=== PATIENT | male | born 1970 | race African-American/Black ===

== ENCOUNTER 2022-12-12 17:33 | Inpatient (IN) | payer OTHER ==
[2022-12-12 20:38] VITALS: BMI 22.4
[2022-12-12] MEDS ORDERED: BENZONATATE 200 MG CAPSULE PO PRN (21:07)
[2022-12-12] MEDS ORDERED: MAGNESIUM HYDROX 2400MG/30ML ORAL SUSPENSION 30 ML CUP PO PRN (21:07)
[2022-12-12] MEDS ORDERED: MAG HYDROX/AL HYDROX/SIMETH 30 ML UNIT-DOSE CUP PO PRN (21:07)
[2022-12-12] MEDS ORDERED: BENZOCAINE/MENTHOL (CHLORASEPTIC ) LOZENGE MM PRN (21:07)
[2022-12-12] MEDS ORDERED: ONDANSETRON *ODT* 4 MG TABLET SL PRN (21:07)
[2022-12-12] MEDS ORDERED: NALOXONE HCL (KLOXXADO) 8 MG SPRAY NS PRN (21:07)
[2022-12-12] MEDS ORDERED: BISMUTH SUBSALICYLATE 524 MG/30 ML PO PRN (21:07)
[2022-12-12] MEDS ORDERED: DICYCLOMINE HCL 10 MG CAPSULE PO PRN (21:07)
[2022-12-12] MEDS ORDERED: IBUPROFEN 400 MG TABLET (FP) PO PRN (21:07)
[2022-12-12] MEDS ORDERED: IBUPROFEN 600 MG TABLET (FP) PO PRN (21:07)
[2022-12-12] MEDS ORDERED: ACETAMINOPHEN 325 MG TABLET (FP) PO PRN (21:07)
[2022-12-12] MEDS ORDERED: LOPERAMIDE HCL 2 MG CAPSULE PO PRN (21:07)
[2022-12-12] MEDS ORDERED: POLYETHYLENE GLYCOL (HEALTHYLAX) 3350 17 GM PACKET PO PRN (21:07)
[2022-12-12] MEDS ORDERED: NALOXONE HCL 0.4 MG/ML VIAL IM PRN (21:07)
[2022-12-12] MEDS ORDERED: guaiFENesin 600 MG TABLET.ER (FP) PO PRN (21:07)
[2022-12-12] MEDS ORDERED: NICOTINE POLACRILEX 2 MG GUM BUC PRN (21:07)
[2022-12-13] MEDS ORDERED: ALBUTEROL SO4 HFA INHALER IH PRN (08:26)
[2022-12-13] MEDS ORDERED: methaDONE HCL 10 MG TABLET PO ONE (09:31)
[2022-12-13] MEDS ORDERED: diazePAM 5 MG TABLET PO PRN (09:54)
[2022-12-13] MEDS ORDERED: NICOTINE 10 MG CARTRIDGE (INHALER) IH PRN (10:09)
[2022-12-13] MEDS: PRENATAL VITAMINS W/ FOLIC ACID TABLET (FP) PO SCH (10:23)
[2022-12-13] MEDS: diazePAM 5 MG TABLET PO SCH ×3 (10:24→22:16)
[2022-12-13] MEDS: METHOCARBAMOL 500 MG TABLET PO PRN (10:25)
[2022-12-13] MEDS: hydrOXYzine PAMOATE 25 MG CAPSULE (FP) PO PRN (10:25)
[2022-12-13] MEDS: NICOTINE 21 MG/24 HOURS TOPICAL PATCH TD SCH (10:26)
[2022-12-13 11:36] LABS: HEMATOCRIT 34.2 % (35.4-49); HEMOGLOBIN 11.5 GM/dL (11.7-16.9); MCH 29.4 pg (25.7-33.7); MCHC 33.5 g/dl (32.0-35.9); MEAN CELL VOLUME 87.7 fl (80-96); MEAN PLT VOLUME 8.4 fl (7.5-11.1); PLATELET COUNT 244 10^3/uL (134-434); RDW 14.1 % (11.9-15.9); WHITE BLOOD COUNT 9.9 K/mm3 (4.0-10.0)
[2022-12-13 13:28] LABS: POTASSIUM 4.2 mmol/L (3.5-5.1)
[2022-12-13 13:35] LABS: CALCIUM 9.1 mg/dL (8.5-10.1)
[2022-12-13 13:36] LABS: ALBUMIN 3.1 g/dl (3.4-5.0); BLOOD UREA NITROGEN 11.6 mg/dL (7-18)
[2022-12-13 13:39] LABS: CREATININE 0.7 mg/dL (0.55-1.3)
[2022-12-13 13:41] LABS: BILIRUBIN,TOTAL 0.2 mg/dL (0.2-1); TOT PROT 6.7 g/dl (6.4-8.2)
[2022-12-13 14:10] LABS: HIV INTERPRETATION NEGATIVE (NEGATIVE)
[2022-12-13] MEDS: MELATONIN 5 MG TABLETS PO SCH (22:16)
[2022-12-13] MEDS: THIAMINE HCL 100 MG TABLET (FP) PO SCH (22:16)
[2022-12-13] MEDS: ATORVASTATIN CA 10 MG TABLET (FP) PO SCH (22:16)
[2022-12-14] MEDS ORDERED: methaDONE HCL 10 MG TABLET PO SCH (06:00)
[2022-12-14] MEDS: diazePAM 5 MG TABLET PO SCH ×4 (06:11→22:31)
[2022-12-14] MEDS: NICOTINE 21 MG/24 HOURS TOPICAL PATCH TD SCH (10:49)
[2022-12-14] MEDS: PRENATAL VITAMINS W/ FOLIC ACID TABLET (FP) PO SCH (10:49)
[2022-12-14] MEDS: METHOCARBAMOL 500 MG TABLET PO PRN (10:52)
[2022-12-14] MEDS: hydrOXYzine PAMOATE 25 MG CAPSULE (FP) PO PRN (10:52)
[2022-12-14] MEDS: DOCUSATE SODIUM 100 MG CAPSULE (FP) PO SCH ×2 (13:27→22:31)
[2022-12-14] MEDS: THIAMINE HCL 100 MG TABLET (FP) PO SCH (22:31)
[2022-12-14] MEDS: ATORVASTATIN CA 10 MG TABLET (FP) PO SCH (22:31)
[2022-12-14] MEDS: MELATONIN 5 MG TABLETS PO SCH (22:32)
[2022-12-15] MEDS: diazePAM 5 MG TABLET PO SCH ×3 (05:33→22:41)
[2022-12-15] MEDS: DOCUSATE SODIUM 100 MG CAPSULE (FP) PO SCH ×3 (05:34→22:41)
[2022-12-15] MEDS ORDERED: SODIUM PHOSPHATE/NA BIPHOS 133 ML ENEMA RC ONE (09:00)
[2022-12-15] MEDS: NICOTINE 21 MG/24 HOURS TOPICAL PATCH TD SCH (10:35)
[2022-12-15] MEDS: PRENATAL VITAMINS W/ FOLIC ACID TABLET (FP) PO SCH (10:37)
[2022-12-15] MEDS: hydrOXYzine PAMOATE 25 MG CAPSULE (FP) PO PRN (10:37)
[2022-12-15] MEDS: METHOCARBAMOL 500 MG TABLET PO PRN (10:37)
[2022-12-15] MEDS ORDERED: LACTULOSE 20 GM/30 ML UDC (FOR ORAL USE ONLY) PO ONE (12:22)
[2022-12-15] MEDS ORDERED: LACTULOSE 20 GM/30 ML UDC (FOR ORAL USE ONLY) PO PRN (12:24)
[2022-12-15] MEDS: ATORVASTATIN CA 10 MG TABLET (FP) PO SCH (22:41)
[2022-12-15] MEDS: THIAMINE HCL 100 MG TABLET (FP) PO SCH (22:41)
[2022-12-15] MEDS: MELATONIN 5 MG TABLETS PO SCH (22:42)
[2022-12-16] MEDS: DOCUSATE SODIUM 100 MG CAPSULE (FP) PO SCH ×3 (05:38→22:14)
[2022-12-16] MEDS: diazePAM 5 MG TABLET PO SCH ×2 (05:39→17:28)
[2022-12-16] MEDS: NICOTINE 21 MG/24 HOURS TOPICAL PATCH TD SCH (10:36)
[2022-12-16] MEDS: PRENATAL VITAMINS W/ FOLIC ACID TABLET (FP) PO SCH (10:36)
[2022-12-16] MEDS: hydrOXYzine PAMOATE 25 MG CAPSULE (FP) PO PRN ×2 (10:37→22:14)
[2022-12-16] MEDS: METHOCARBAMOL 500 MG TABLET PO PRN ×2 (10:37→22:14)
[2022-12-16] MEDS: THIAMINE HCL 100 MG TABLET (FP) PO SCH (22:14)
[2022-12-16] MEDS: ATORVASTATIN CA 10 MG TABLET (FP) PO SCH (22:14)
[2022-12-16] MEDS: MELATONIN 5 MG TABLETS PO SCH (22:14)
[2022-12-17] MEDS: DOCUSATE SODIUM 100 MG CAPSULE (FP) PO SCH (05:52)
[2022-12-17] MEDS ORDERED: diazePAM 5 MG TABLET PO ONE (06:00)
[2022-12-17 09:35] VITALS: BP 137/76; PULSE 79; RESP 18; TEMP 98.1
[2022-12-17] MEDS: PRENATAL VITAMINS W/ FOLIC ACID TABLET (FP) PO SCH ×2 (10:32→10:34)
[2022-12-17] MEDS: NICOTINE 21 MG/24 HOURS TOPICAL PATCH TD SCH (10:32)
== END 2022-12-17 11:25 | disposition home or self-care (01) | DRG 773 ==
LOC: YASAS 17:33 → Y6N 23:44
PROVIDERS: ADMIT Allergy & Immunology; ATTEND Surgery
PROC: HZ2ZZZZ Detoxification Services for Substance Abuse Treatment (ICD-10-PCS; principal; 2022-12-12)
DX: F10.230 Alcohol dependence with withdrawal, uncomplicated (principal); F13.230 Sedative, hypnotic or anxiolytic dependence with withdrawal, uncomplicated; F11.20 Opioid dependence, uncomplicated; F14.20 Cocaine dependence, uncomplicated; F17.213 Nicotine dependence, cigarettes, with withdrawal; F19.24 Other psychoactive substance dependence with psychoactive substance-induced mood disorder; F33.0 Major depressive disorder, recurrent, mild; G40.909 Epilepsy, unspecified, not intractable, without status epilepticus; E78.00 Pure hypercholesterolemia, unspecified; J45.20 Mild intermittent asthma, uncomplicated; H54.62 Unqualified visual loss, left eye, normal vision right eye; K59.00 Constipation, unspecified; R63.4 Abnormal weight loss; Z68.22 Body mass index [BMI] 22.0-22.9, adult; Z86.11 Personal history of tuberculosis; Z88.0 Allergy status to penicillin; Z28.310 Unvaccinated for COVID-19; Z28.9 Immunization not carried out for unspecified reason
CPT/HCPCS: 36415; 71046-TC-FY; 80053; 85027; 86780; 87389; 87635; 93005; 93010

== ENCOUNTER 2024-04-01 09:06 | Inpatient (IN) | payer OTHER ==
[2024-04-01 09:54] VITALS: BMI 20.8
[2024-04-01] MEDS ORDERED: ACETAMINOPHEN 325 MG TABLET (FP) PO PRN (10:53)
[2024-04-01] MEDS ORDERED: NALOXONE HCL 0.4 MG/ML VIAL IM PRN (10:53)
[2024-04-01] MEDS ORDERED: BENZOCAINE/MENTHOL (CHLORASEPTIC ) LOZENGE MM PRN (10:53)
[2024-04-01] MEDS ORDERED: NICOTINE POLACRILEX 2 MG GUM BUC PRN (10:53)
[2024-04-01] MEDS ORDERED: BENZONATATE 200 MG CAPSULE PO PRN (10:53)
[2024-04-01] MEDS ORDERED: MAGNESIUM HYDROX 2400MG/30ML ORAL SUSPENSION 30 ML CUP PO PRN (10:53)
[2024-04-01] MEDS ORDERED: IBUPROFEN 400 MG TABLET (FP) PO PRN (10:53)
[2024-04-01] MEDS ORDERED: POLYETHYLENE GLYCOL (HEALTHYLAX) 3350 17 GM PACKET PO PRN (10:53)
[2024-04-01] MEDS ORDERED: hydrOXYzine PAMOATE 25 MG CAPSULE (FP) PO PRN (10:53)
[2024-04-01] MEDS ORDERED: LOPERAMIDE HCL 2 MG CAPSULE PO PRN (10:53)
[2024-04-01] MEDS ORDERED: NALOXONE (NARCAN) HCL 4 MG/0.1 ML SPRAY NS PRN (10:53)
[2024-04-01] MEDS ORDERED: guaiFENesin 600 MG TABLET.ER (FP) PO PRN (10:53)
[2024-04-01] MEDS ORDERED: IBUPROFEN 600 MG TABLET (FP) PO PRN (10:53)
[2024-04-01] MEDS ORDERED: MAG HYDROX/AL HYDROX/SIMETH 30 ML UNIT-DOSE CUP PO PRN (10:53)
[2024-04-01] MEDS ORDERED: methaDONE HCL 10 MG TABLET PO ONE (17:29)
[2024-04-01] MEDS: methaDONE 40 MG, methaDONE 20 MG PO ONE (17:40)
[2024-04-01] MEDS: MELATONIN 5 MG TABLETS PO SCH (22:23)
[2024-04-01] MEDS: THIAMINE 100 MG TABLET PO SCH (22:23)
[2024-04-02] MEDS ORDERED: methaDONE HCL 40 MG DISPERSABLE TABLET PO SCH (06:00)
[2024-04-02] MEDS: PRENATAL VITAMINS W/ FOLIC ACID TABLET (FP) PO SCH (09:09)
[2024-04-02] MEDS: NICOTINE 14 MG/24 HOURS TOPICAL PATCH TD SCH (09:10)
[2024-04-02] MEDS: SERTRALINE HCL 25 MG TABLET (FP) PO SCH (13:30)
[2024-04-02 14:40] LABS: CHLORIDE 109 mmol/L (98-107); POTASSIUM 4.3 mmol/L (3.5-5.1); SODIUM 143 mmol/L (136-145)
[2024-04-02 14:46] LABS: ALBUMIN 3.3 g/dl (3.4-5.0); CALCIUM 9.2 mg/dL (8.5-10.1)
[2024-04-02 14:47] LABS: ANION GAP 7 mmol/L (4-13); BLOOD UREA NITROGEN 12.6 mg/dL (7-18); CO2 27 mmol/L (21-32); GLUCOSE,RANDOM 68 mg/dL (74-106)
[2024-04-02 14:48] LABS: HEMATOCRIT 38.1 % (35.4-49); HEMOGLOBIN 12.3 GM/dL (11.7-16.9); MCH 29.4 pg (25.7-33.7); MCHC 32.2 g/dl (32.0-35.9); MEAN CELL VOLUME 91.3 fl (80-96); MEAN PLT VOLUME 9.4 fl (7.5-11.1); PLATELET COUNT 254 10^3/uL (134-434); RBC 4.18 M/mm3 (4.00-5.60); RDW 14.8 % (11.9-15.9); WHITE BLOOD COUNT 5.2 K/mm3 (4.0-10.0)
[2024-04-02 14:50] LABS: CREATININE 0.9 mg/dL (0.55-1.3); SGOT/AST 21 U/L (15-37); SGPT/ALT 20 U/L (13-61)
[2024-04-02 14:51] LABS: BILIRUBIN,TOTAL 0.2 mg/dL (0.2-1); TOT PROT 6.7 g/dl (6.4-8.2)
[2024-04-02 14:52] LABS: ALK PHOS 104 U/L (45-117)
[2024-04-02 15:40] LABS: HIV INTERPRETATION NEGATIVE (NEGATIVE)
[2024-04-02] MEDS: SUVOREXANT 10 MG TABLET PO PRN (21:19)
[2024-04-02 22:11] LABS: URINE APPEARANCE CLEAR; URINE BILIRUBIN NEGATIVE (NEGATIVE); URINE COLOR YELLOW; URINE GLUCOSE (UA) NEGATIVE (NEGATIVE); URINE KETONE NEGATIVE (NEGATIVE); URINE LEUK ESTERASE NEGATIVE (NEGATIVE); URINE NITRITE NEGATIVE (NEGATIVE); URINE PROTEIN NEGATIVE (NEGATIVE); URINE UROBILINOGEN 0.2 mg/dL (0.2-1.0)
[2024-04-03] MEDS ORDERED: ALBUTEROL SO4 HFA INHALER IH PRN (12:17)
[2024-04-03] MEDS ORDERED: DOCUSATE SODIUM 100 MG CAPSULE (FP) PO PRN (12:19)
[2024-04-03] MEDS ORDERED: LIDOCAINE 4% PATCH TP ONE (12:20)
[2024-04-03] MEDS: LIDOCAINE 5% TOPICAL PATCH TP SCH (13:23)
[2024-04-03] MEDS: GABAPENTIN 100 MG CAPSULE PO SCH (13:26)
[2024-04-03] MEDS: LIDOCAINE PATCH REMOVAL MC SCH (21:35)
[2024-04-03] MEDS: ATORVASTATIN CA 10 MG TABLET (FP) PO SCH (21:35)
[2024-04-03] MEDS ORDERED: LIDOCAINE PATCH REMOVAL MC SCH (22:00)
[2024-04-04] MEDS: BACLOFEN 10 MG TABLET (FP) PO SCH (10:07)
[2024-04-04 13:46] LABS: INR 0.91 (0.83-1.09); PROTHROMBIN TIME (PATIENT) 10.5 SEC (9.7-13.0)
[2024-04-04] MEDS: LACTULOSE 20 GM/30 ML UDC (FOR ORAL USE ONLY) PO PRN (14:10)
[2024-04-04 14:48] LABS: HIV INTERPRETATION NEGATIVE (NEGATIVE)
[2024-04-04] MEDS: SUVOREXANT 10 MG TABLET PO PRN (21:25)
[2024-04-05 06:11] VITALS: RESP 18
[2024-04-06 06:17] VITALS: TEMP 97.7
[2024-04-07 10:01] VITALS: BP 158/100; PULSE 69
== END 2024-04-07 09:11 | disposition home or self-care (01) | DRG 772 ==
LOC: YASAS 09:06 → Y3NR 11:56 → Y3W 04-02 09:36
PROVIDERS: ADMIT Psychiatry & Neurology Pain Medicine; ATTEND Psychiatry & Neurology Pain Medicine
PROC: HZ42ZZZ Group Counseling for Substance Abuse Treatment, Cognitive-Behavioral (ICD-10-PCS; principal; 2024-04-01)
DX: F11.20 Opioid dependence, uncomplicated (principal); F10.20 Alcohol dependence, uncomplicated; F14.20 Cocaine dependence, uncomplicated; F17.210 Nicotine dependence, cigarettes, uncomplicated; F19.280 Other psychoactive substance dependence with psychoactive substance-induced anxiety disorder; F19.282 Other psychoactive substance dependence with psychoactive substance-induced sleep disorder; F41.9 Anxiety disorder, unspecified; F32.A Depression, unspecified; F43.10 Post-traumatic stress disorder, unspecified; E78.5 Hyperlipidemia, unspecified; H54.62 Unqualified visual loss, left eye, normal vision right eye; I10 Essential (primary) hypertension; R76.11 Nonspecific reaction to tuberculin skin test without active tuberculosis; R60.0 Localized edema
CPT/HCPCS: 36415; 71046-TC-FY; 80053; 80305; 80307; 81003; 82140; 82652; 83735; 85027; 85610; 86780; 86803; 87389; 87811; 93005; 93010; J0475

== ENCOUNTER 2024-04-30 13:10 | Inpatient (IN) | payer OTHER ==
[2024-04-30 14:05] VITALS: BMI 21.8
[2024-04-30] MEDS ORDERED: IBUPROFEN 600 MG TABLET (FP) PO PRN (14:55)
[2024-04-30] MEDS ORDERED: MAG HYDROX/AL HYDROX/SIMETH 30 ML UNIT-DOSE CUP PO PRN (14:55)
[2024-04-30] MEDS ORDERED: guaiFENesin 600 MG TABLET.ER (FP) PO PRN (14:55)
[2024-04-30] MEDS ORDERED: POLYETHYLENE GLYCOL (HEALTHYLAX) 3350 17 GM PACKET PO PRN (14:55)
[2024-04-30] MEDS ORDERED: NICOTINE POLACRILEX 4 MG GUM BUC PRN (14:55)
[2024-04-30] MEDS ORDERED: BENZOCAINE/MENTHOL (CHLORASEPTIC ) LOZENGE MM PRN (14:55)
[2024-04-30] MEDS ORDERED: IBUPROFEN 400 MG TABLET (FP) PO PRN (14:55)
[2024-04-30] MEDS ORDERED: hydrOXYzine PAMOATE 25 MG CAPSULE (FP) PO PRN (14:55)
[2024-04-30] MEDS ORDERED: MAGNESIUM HYDROX 2400MG/30ML ORAL SUSPENSION 30 ML CUP PO PRN (14:55)
[2024-04-30] MEDS ORDERED: BENZONATATE 200 MG CAPSULE PO PRN (14:55)
[2024-04-30] MEDS ORDERED: ACETAMINOPHEN 325 MG TABLET (FP) PO PRN (14:55)
[2024-04-30] MEDS ORDERED: DICYCLOMINE HCL 10 MG CAPSULE PO PRN (14:55)
[2024-04-30] MEDS ORDERED: NALOXONE (NARCAN) HCL 4 MG/0.1 ML SPRAY NS PRN (14:55)
[2024-04-30] MEDS ORDERED: METHOCARBAMOL 500 MG TABLET PO PRN (14:55)
[2024-04-30] MEDS ORDERED: LACTULOSE 20 GM/30 ML UDC (FOR ORAL USE ONLY) PO PRN (14:58)
[2024-04-30] MEDS ORDERED: PRENATAL VITAMINS W/ FOLIC ACID TABLET (FP) PO ONE (15:40)
[2024-04-30] MEDS: PRENATAL VITAMINS W/ FOLIC ACID TABLET (FP) PO SCH (15:42)
[2024-04-30] MEDS: BISMUTH SUBSALICYLATE 524 MG/30 ML PO PRN (17:42)
[2024-04-30] MEDS: ATORVASTATIN CA 10 MG TABLET (FP) PO SCH (21:55)
[2024-04-30] MEDS: THIAMINE 100 MG TABLET PO SCH (21:55)
[2024-04-30] MEDS: LOPERAMIDE HCL 2 MG CAPSULE PO PRN (21:59)
[2024-04-30] MEDS: LIDOCAINE PATCH REMOVAL MC SCH (22:00)
[2024-04-30] MEDS: MELATONIN 5 MG TABLETS PO SCH (22:00)
[2024-05-01] MEDS: ONDANSETRON *ODT* 4 MG TABLET SL PRN (05:41)
[2024-05-01] MEDS ORDERED: methaDONE HCL 10 MG TABLET PO ONE (08:38)
[2024-05-01] MEDS ORDERED: diazePAM 5 MG TABLET PO PRN (08:38)
[2024-05-01] MEDS: BACLOFEN 10 MG TABLET (FP) PO SCH (09:36)
[2024-05-01] MEDS: LIDOCAINE 5% TOPICAL PATCH TP SCH (09:36)
[2024-05-01] MEDS ORDERED: SERTRALINE HCL 50 MG TABLET (FP) PO SCH (10:00)
[2024-05-01] MEDS: SERTRALINE HCL 25 MG TABLET (FP) PO SCH (10:41)
[2024-05-01] MEDS: diazePAM 5 MG TABLET PO SCH (10:41)
[2024-05-01] MEDS ORDERED: ALBUTEROL SO4 HFA INHALER IH PRN (11:25)
[2024-05-01 15:22] LABS: HEMATOCRIT 40.3 % (35.4-49); HEMOGLOBIN 13.2 GM/dL (11.7-16.9); MCH 29.4 pg (25.7-33.7); MCHC 32.7 g/dl (32.0-35.9); MEAN PLT VOLUME 8.9 fl (7.5-11.1); PLATELET COUNT 299 10^3/uL (134-434); RBC 4.48 M/mm3 (4.00-5.60); RDW 15.2 % (11.9-15.9); WHITE BLOOD COUNT 8.1 K/mm3 (4.0-10.0)
[2024-05-01 15:25] LABS: CHLORIDE 106 mmol/L (98-107); POTASSIUM 5.3 mmol/L (3.5-5.1); SODIUM 140 mmol/L (136-145)
[2024-05-01 15:26] LABS: CALCIUM 9.4 mg/dL (8.5-10.1)
[2024-05-01 15:27] LABS: ALBUMIN 3.7 g/dl (3.4-5.0); ANION GAP 4 mmol/L (4-13); BLOOD UREA NITROGEN 26.3 mg/dL (7-18); CO2 30 mmol/L (21-32); GLUCOSE,RANDOM 68 mg/dL (74-106)
[2024-05-01 15:30] LABS: CREATININE 1.1 mg/dL (0.55-1.3); SGOT/AST 27 U/L (15-37); SGPT/ALT 43 U/L (13-61)
[2024-05-01 15:32] LABS: BILIRUBIN,TOTAL 0.2 mg/dL (0.2-1); TOT PROT 7.3 g/dl (6.4-8.2)
[2024-05-01 15:33] LABS: ALK PHOS 150 U/L (45-117)
[2024-05-01] MEDS ORDERED: SODIUM POLYSTYRENE SULFONATE 15 GM/60 ML BOTTLE PO ONE (19:15)
[2024-05-01] MEDS: SODIUM POLYSTYRENE SULFONATE 15 GM/60 ML BOTTLE PO ONE (21:09)
[2024-05-01] MEDS: traZODone HCL 100 MG TABLET (FP) PO SCH (22:29)
[2024-05-02] MEDS ORDERED: methaDONE HCL 10 MG TABLET PO SCH (06:00)
[2024-05-03] MEDS: diazePAM 5 MG TABLET PO SCH (05:39)
[2024-05-04] MEDS: diazePAM 5 MG TABLET PO SCH (05:42)
[2024-05-04] MEDS: SUVOREXANT 10 MG TABLET PO PRN (21:43)
[2024-05-05] MEDS: diazePAM 5 MG TABLET PO ONE (05:42)
[2024-05-05 08:47] VITALS: BP 112/68; PULSE 82; RESP 18; TEMP 98.7
[2024-05-05] MEDS: NALOXONE (NYS OPIOID OVERDOSE PROGRAM) 4 MG/0.1 ML SPRAY NS PRN (10:56)
== END 2024-05-05 10:42 | disposition home or self-care (01) | DRG 773 ==
LOC: YASAS 13:10 → Y6N 15:34
PROVIDERS: ADMIT Allergy & Immunology; ATTEND Surgery
PROC: HZ2ZZZZ Detoxification Services for Substance Abuse Treatment (ICD-10-PCS; principal; 2024-04-30)
DX: F10.230 Alcohol dependence with withdrawal, uncomplicated (principal); F13.230 Sedative, hypnotic or anxiolytic dependence with withdrawal, uncomplicated; F11.20 Opioid dependence, uncomplicated; F14.20 Cocaine dependence, uncomplicated; F19.282 Other psychoactive substance dependence with psychoactive substance-induced sleep disorder; F19.280 Other psychoactive substance dependence with psychoactive substance-induced anxiety disorder; F19.24 Other psychoactive substance dependence with psychoactive substance-induced mood disorder; F41.9 Anxiety disorder, unspecified; F32.A Depression, unspecified; F43.10 Post-traumatic stress disorder, unspecified; E78.5 Hyperlipidemia, unspecified; H54.62 Unqualified visual loss, left eye, normal vision right eye; J45.20 Mild intermittent asthma, uncomplicated; R76.11 Nonspecific reaction to tuberculin skin test without active tuberculosis; Z62.810 Personal history of physical and sexual abuse in childhood; Z88.0 Allergy status to penicillin
CPT/HCPCS: 36415; 80053; 80305; 80307; 84132; 85027; 86780; 93005; 93010; J0475; Q0162